=== PATIENT | female | born 1965 | race Caucasian/White ===

== ENCOUNTER 2017-09-20 15:52 | Emergency (ER) | payer OTHER ==
[~2017-09-20] VITALS: Ht 161.3 cm; Wt 83.5 kg
[~2017-09-20 15:52] MED LIST: ALBU6.7H INH; BENI40TA30 PO; CITA20 PO; ESTR1TAB12 PO; GLUCTAB PO; HORMONE PO; LEVO50TA4 PO; OXYB5TAB PO; ZITH250T PO
[2017-09-20 15:58] VITALS: BP 170/71; PULSE 78; RESP 16; TEMP 97.7; O2SAT 95
[2017-09-20] MEDS ORDERED: SODIUM CHLOR 0.9% 1000 ML INJ 1,000 ML IV ONE (16:15)
--- NOTE | 2017-09-20 16:20 | PD ---
HPI Chief Complaint: Diabetic Time Seen by Provider: 16:04 Travel History International Travel<30 days: No Contact w/Intl Traveler<30days: No Traveled to known affect area: No History of Present Illness HPI Patient presents to the emergency department complaining of elevated blood sugar. States that she is noncompliant with her diet and her Accu-Chek was 397. Took an extra glipizide around 1 this afternoon ate a quarter of a sandwich and repeat Accu-Chek was 396. Is complaining of a headache. She states it is normally not difficult to control her blood sugars. He denies fever, chills, nausea, vomiting, chest pain, abdominal pain, dysuria. She reports nonbloody diarrhea 2 days, 2 episodes daily. Also reporting right side tingling and chronic dyspnea secondary to asthma. No dysuria. PFSH Past Medical History Hx Anticoagulant Therapy: Yes (asa 81mg) Cardiovascular Problems: Yes (htn on meds) Diabetes: Yes (type 2) Diminished Hearing: No Genitourinary: Yes (LEAKY BLADDER) Hypertension: Yes Respiratory: Yes (asthma) Immunizations Current: No Thyroid Disease: Yes (PARTIAL THYROID) ?: Not Menopausal: Yes Tubal Ligation: Yes Past Surgical History Endocrine Surgery: Yes (PARTIAL THYROID) Tonsillectomy: Yes Other Surgery: Yes (PLASTIC SURG SCALP) Social History Alcohol Use: Yes ([facility] [address]) Tobacco Use: No (QUIT 2007) Substance Use: No Allergies-Medications (Allergen,Severity, Reaction): Coded Allergies: codeine (Unverified Allergy, Severe, ITCH AND HEADACHES, 09/20/17) Reported Meds & Prescriptions Reported Meds & Active Scripts Active Reported Ventolin Hfa 18 GM Inh (Albuterol Sulfate) 90 Mcg/Act Aer 2 Puff INH Q4-6H PRN Advair Hfa 12 GM Inh (Fluticasone-Salmeterol 12 GM Inh) 45-21 Mcg/Act Aer 2 Puff INH BID Januvia (Sitagliptin Phosphate) 100 Mg Tab 100 Mg PO DAILY Amlodipine (Amlodipine Besylate) 5 Mg Tab Unknown Dose PO DAILY Levothyroxine (Levothyroxine Sodium) 50 Mcg Tab Unknown Dose PO DAILY Losartan (Losartan Potassium) 50 Mg Tab Unknown Dose PO DAILY Aspirin Low Dose (Aspirin) 81 Mg Chew 81 Mg CHEW DAILY Hydrochlorothiazide 12.5 Mg Cap Unknown Dose PO DAILY Atorvastatin (Atorvastatin Calcium) 10 Mg Tab Unknown Dose PO HS Oxybutynin ER 24 HR (Oxybutynin Chloride) 5 Mg Tab 5 Mg PO DAILY Citalopram (Citalopram Hydrobromide) 20 Mg Tab 20 Mg PO DAILY Glipizide 10 Mg Tab 10 Mg PO BIDAC Take 30 minutes before a meal Review of Systems Except as stated in HPI: all other systems reviewed are Neg Physical Exam Narrative GENERAL: No acute distress. SKIN: Focused skin assessment warm/dry. HEAD: Atraumatic. Normocephalic. EYES: Pupils equal and round. No scleral icterus. No injection or drainage. ENT: No nasal bleeding or discharge. Mucous membranes pink and moist. NECK: Trachea midline. No JVD. CARDIOVASCULAR: Regular rate and rhythm. No murmur appreciated. RESPIRATORY: No accessory muscle use. Clear to auscultation. Breath sounds equal bilaterally. GASTROINTESTINAL: Abdomen soft, non-tender, nondistended. Hepatic and splenic margins not palpable. MUSCULOSKELETAL: No obvious deformities. No clubbing. No cyanosis. No edema. NEUROLOGICAL: Awake and alert. No obvious cranial nerve deficits. Motor grossly within normal limits. Normal speech. PSYCHIATRIC: Appropriate mood and affect; insight and judgment normal. Data Data Last Documented VS Vital Signs Date Time Temp Pulse Resp B/P (MAP) Pulse Ox O2 Delivery O2 Flow Rate FiO2 09/20/17 18:20 69 16 126/61 (82) 96 Room Air 09/20/17 15:58 97.7 Orders Orders Complete Blood Count With Diff (09/20/17 16:13) Comprehensive Metabolic Panel (09/20/17 16:13) Magnesium (Mg) (09/20/17 16:13) Beta Hydroxybutyrate (Acetone) (09/20/17 16:13) Urinalysis - C+S If Indicated (09/20/17 16:13) Ecg Monitoring (09/20/17 16:13) Iv Access Insert/Monitor (09/20/17 16:13) Oximetry (09/20/17 16:13) Sodium Chlor 0.9% 1000 Ml Inj (Ns 1000 M (09/20/17 16:15) Ct Brain W/O Iv Contrast(Rout) (09/20/17 16:13) Urine Culture (09/20/17 16:30) Insulin Human Regular Inj (Novolin R Inj (09/20/17 18:30) Insulin Human Regular Inj (Novolin R Inj (09/20/17 18:45) Labs Laboratory Tests Test 09/20/17 16:30 09/20/17 16:45 Urine Collection Type CLEAN CATCH Urine Color YELLOW Urine Turbidity CLEAR Urine pH 6.0 Urine Specific [place] 1.010 Urine Protein NEG mg/dL Urine Glucose (UA) 1000 OR GREATER mg/dL Urine Ketones NEG mg/dL Urine Occult Blood NEG Urine Nitrite NEG Urine Bilirubin NEG Urine Urobilinogen 0.2 MG/DL Urine Leukocyte Esterase NEG Urine WBC 3-5 /hpf Urine Squamous Epithelial Cells > 8 /hpf Urine Amorphous Sediment FEW Urine Bacteria MOD /hpf Microscopic Urinalysis Comment CULTURE INDICATED Urine Collection Time 1630 White Blood Count 8.8 TH/MM3 Red Blood Count 4.39 MIL/MM3 Hemoglobin 13.5 GM/DL Hematocrit 38.9 % Mean Corpuscular Volume 88.7 FL Mean Corpuscular Hemoglobin 30.8 PG Mean Corpuscular Hemoglobin Concent 34.8 % Red Cell Distribution Width 11.9 % Platelet Count 157 TH/MM3 Mean Platelet Volume 11.1 FL Neutrophils (%) (Auto) 73.0 % Lymphocytes (%) (Auto) 19.2 % Monocytes (%) (Auto) 4.8 % Eosinophils (%) (Auto) 2.1 % Basophils (%) (Auto) 0.9 % Neutrophils # (Auto) 6.3 TH/MM3 Lymphocytes # (Auto) 1.7 TH/MM3 Monocytes # (Auto) 0.4 TH/MM3 Eosinophils # (Auto) 0.2 TH/MM3 Basophils # (Auto) 0.1 TH/MM3 CBC Comment DIFF FINAL Differential Comment Blood Urea Nitrogen 19 MG/DL Creatinine 1.10 MG/DL Random Glucose 344 MG/DL Total Protein 7.5 GM/DL Albumin 4.5 GM/DL Calcium Level 9.3 MG/DL Magnesium Level 1.8 MG/DL Alkaline Phosphatase 70 U/L Aspartate Amino Transf (AST/SGOT) 54 U/L Alanine Aminotransferase (ALT/SGPT) 77 U/L Total Bilirubin 0.4 MG/DL Sodium Level 134 MEQ/L Potassium Level 3.7 MEQ/L Chloride Level 98 MEQ/L Carbon Dioxide Level 25.8 MEQ/L Anion Gap 10 MEQ/L Estimat Glomerular Filtration Rate 52 ML/MIN B-Hydroxybutyrate 0.20 MMOL/L MDM Medical Decision Making Medical Screen Exam Complete: Yes Emergency Medical Condition: Yes Interpretation(s) Labs: UA positive for glucose and moderate bacteria, culture pending; CBC within normal limits; chem-BUN/cr/glc/AST/ALT increased; B hydroxy-wnl Last Impressions Head CT 09/20/17 1613 Signed Impressions: CONCLUSION: 1. No acute intracranial abnormalities. Differential Diagnosis Hyperglycemia, DKA, electrolyte abnormality, CVA Narrative Course Patient presents to the emergency department complaint of hyperglycemia. Patient placed on secured entrance monitor, IV access obtained, 1 L normal saline ordered , and head CT/labs ordered. Accucheck after 1L IV NS->270. Patient given 5 units IV regular insulin. States "I'm going to go home and eat." Diagnosis Primary Impression: Hyperglycemia Patient Instructions: Diabetic Hyperglycemia (ED), General Instructions Additional Instructions: 1. Meds as directed. Since the night dose of diabetes med already taken, do not take another dose. 2. Followup with your primary care doctor in 24-48 hours for possible change in diabetes medication. Will need repeat chemistry to check liver function tests. Disposition: 01 DISCHARGE HOME Condition: Stable Molly Clancy MD Sep 20, 2017 16:20
[2017-09-20 16:49] VITALS: O2SAT 96
[2017-09-20 17:01] LABS: AUTOMATED NEUTROPHIL # 6.3 TH/MM3 (1.8-7.7); BASOPHIL # 0.1 TH/MM3 (0-0.2); BASOPHIL % 0.9 % (0.0-2.0); EOSINOPHIL # 0.2 TH/MM3 (0-0.4); EOSINOPHIL % 2.1 % (0.0-4.0); HEMATOCRIT 38.9 % (35.0-46.0); HEMOGLOBIN 13.5 GM/DL (11.6-15.3); LYMPH % 19.2 % (9.0-44.0); LYMPHOCYTE # 1.7 TH/MM3 (1.0-4.8); MEAN CELL VOLUME 88.7 FL (80.0-100.0); MEAN CORPUSCULAR HEMOGLOBIN 30.8 PG (27.0-34.0); MEAN CORPUSCULAR HGB CONC 34.8 % (32.0-36.0); MEAN PLATELET VOLUME 11.1 FL (7.0-11.0); MONO % 4.8 % (0.0-8.0); MONOCYTE # 0.4 TH/MM3 (0-0.9); PLATELET COUNT 157 TH/MM3 (150-450); RED BLOOD COUNT 4.39 MIL/MM3 (4.00-5.30); RED CELL DISTRIBUTION WIDTH 11.9 % (11.6-17.2); WHITE BLOOD COUNT 8.8 TH/MM3 (4.0-11.0)
[2017-09-20] MEDS ORDERED: GLIP10TA6 PO (17:01)
[2017-09-20] MEDS ORDERED: SITA1TAB2 PO (17:01)
[2017-09-20] MEDS ORDERED: ASPI81CH6 CHEW (17:01)
[2017-09-20] MEDS ORDERED: CITA20TA4 PO (17:01)
[2017-09-20] MEDS ORDERED: OXYB5TAB PO (17:01)
[2017-09-20] MEDS ORDERED: LOSA50TA PO (17:01)
[2017-09-20] MEDS ORDERED: LEVO50TA4 PO (17:01)
[2017-09-20] MEDS ORDERED: ATOR10TA15 PO (17:01)
[2017-09-20] MEDS ORDERED: HYDR12.57 PO (17:01)
[2017-09-20] MEDS ORDERED: VENTAER INH (17:01)
[2017-09-20] MEDS ORDERED: ADVA45AE INH (17:01)
[2017-09-20] MEDS ORDERED: AMLO5TAB2 PO (17:01)
[2017-09-20 17:03] LABS: BILIRUBIN, URINE NEG (NEG); BLOOD, URINE NEG (NEG); GLUCOSE,URINE 1000 OR GREATER mg/dL (NEG); KETONE, URINE NEG (NEG); NITRITE,URINE NEG (NEG); URINE COLOR YELLOW (YELLW/STRAW); URINE LEUKOCYTE ESTERASE NEG (NEG)
--- NOTE | 2017-09-20 17:16 | RADRPT ---
EXAM DATE: 09/20/2017 5:05 PM EDT AGE/SEX: 52 years / Female INDICATIONS: Dizziness. Elevated blood sugar. CLINICAL DATA: This is the patient's initial encounter. Patient reports that signs and symptoms have been present for 1 day and indicates a pain score of 0/10. MEDICAL/SURGICAL HISTORY: Diabetes. Hypertension. Thyroidectomy. RADIATION DOSE: 53.68 CTDI (mGy) COMPARISON: No prior exams available for comparison. TECHNIQUE: CT of the head without contrast. Using automated exposure control and adjustment of the mA and/or kV according to patient size, radiation dose was kept as low as reasonably achievable to ob tain optimal diagnostic quality images. DICOM format image data is available electronically for revi ew and comparison. FINDINGS: Cerebrum: The ventricles are normal for age. No evidence of midline shift, mass lesion, hemorrhage or acute infarction. No extraaxial fluid collections are seen. Posterior Fossa: The cerebellum and brainstem are intact. The 4th ventricle is midline. The cerebe llopontine angle is unremarkable. Extracranial: The visualized portion of the orbits is intact. Skull: The calvaria is intact. No evidence of skull fracture. CONCLUSION: 1. No acute intracranial abnormalities. Electronically signed by: Jesse Mata MD 09/20/2017 5:15 PM EDT
[2017-09-20 17:17] LABS: CHLORIDE 98 MEQ/L (98-107); SODIUM (NA) 134 MEQ/L (136-145)
[2017-09-20 17:20] LABS: ALBUMIN 4.5 GM/DL (3.4-5.0); BICARBONATE 25.8 MEQ/L (21.0-32.0); CALCIUM 9.3 MG/DL (8.5-10.1); GLUCOSE,RANDOM 344 MG/DL (74-106); MAGNESIUM 1.8 MG/DL (1.5-2.5)
[2017-09-20 17:21] LABS: BLOOD UREA NITROGEN 19 MG/DL (7-18)
[2017-09-20 17:23] LABS: ALT (GPT) 77 U/L (10-53)
[2017-09-20 17:24] LABS: AST (GOT) 54 U/L (15-37); GLOMERULAR FILTRATION RATE 52 ML/MIN (>89)
[2017-09-20 17:25] LABS: TOTAL BILIRUBIN ADULT 0.4 MG/DL (0.2-1.0); TOTAL PROTEIN 7.5 GM/DL (6.4-8.2)
[2017-09-20 17:26] LABS: ALKALINE PHOSPHATASE 70 U/L (45-117)
[2017-09-20 17:29] LABS: AMORPHOUS SEDIMENT, URINE FEW; BACTERIA, URINE MOD /hpf; SQUAMOUS EPITHELIAL CELL URINE > 8 /hpf (0-5)
[2017-09-20 18:20] VITALS: BP 126/61; PULSE 69; RESP 16; O2SAT 96
[2017-09-20] MEDS ORDERED: INSULIN HUMAN REGULAR 1,000 UNITS/10 ML VIAL SQ ONE (18:30)
[2017-09-20] MEDS ORDERED: INSULIN HUMAN REGULAR 1,000 UNITS/10 ML VIAL IV PUSH ONE (18:45)
== END 2017-09-20 19:20 | disposition home or self-care (01) ==
LOC: PHED 15:52
DX: E11.65 Type 2 diabetes mellitus with hyperglycemia (principal); R51 Headache; J45.909 Unspecified asthma, uncomplicated; I10 Essential (primary) hypertension; Z79.82 Long term (current) use of aspirin; Z79.84 Long term (current) use of oral hypoglycemic drugs; Z91.11 Patient's noncompliance with dietary regimen
CPT/HCPCS: 70450; 80053; 81001; 82010; 83735; 85025; 87086; 96361; 96374; 99284; J1815; J7030